=== PATIENT | female | born 1945 | race Caucasian/White ===

== ENCOUNTER 2024-11-20 14:35 | Emergency (ER) | payer MEDICARE, SELFPAY ==
--- NOTE | ~2024-11-20 | CT_ITS ---
EXAMINATION: CT brain wo con DATE: 11/20/2024 15:10 INDICATION: fall on eliquis . TECHNIQUE: Computed tomography (CT) of the head was performed without intravenous contrast. The mA wa s adjusted according to patient size. Iterative reconstruction technique was employed. The dose-lengt h product was 681.00 mGy-cm. COMPARISON: None. FINDINGS: No acute intracranial hemorrhage or extra-axial fluid collection. No hydrocephalus, mass, or herniation. No acute ischemic infarct. Unremarkable dural venous sinus attenuation. No acute osseous abnormality. Left maxillary opacification, with surrounding sclerosis, minimal left mastoid fluid, the remaining a erated spaces are clear. Mild atrophy and chronic white matter change. Atherosclerotic intracranial calcification. IMPRESSION: No acute intracranial process. Reviewed, dictated and finalized at location K.
--- NOTE | ~2024-11-20 | XR_ITS ---
EXAM: XR knee LT min 4V, XR knee RT min 4V DATE: 11/20/2024 16:20 HISTORY: fall . COMPARISON: 10/04/2019, images only. FINDINGS: Osteopenia. No fracture or dislocation. No lytic or blastic lesion. Moderate tricompartmen aileen bilateral knee osteoarthritis. Bilateral quadriceps enthesopathy. Scattered vascular calcificatio ns. Trace bilateral knee joint effusions. No erosion or periosteal change. Soft tissue swelling anter ior to the right patella. IMPRESSION: No acute osseous finding in the right or left knees. Reviewed, dictated and finalized at location K. IMPRESSION: No acute osseous finding in the right or left knees.
--- NOTE | ~2024-11-20 | CT_ITS ---
EXAMINATION: CT cervical spine wo con DATE: 11/20/2024 15:12 INDICATION: fall head injury TECHNIQUE: Computed tomography (CT) of the cervical spine was performed without intravenous contrast. Automated exposure control and iterative reconstruction technique were employed. The dose-length pro duct was 409.95 mGy-cm. COMPARISON: None. FINDINGS: Vertebral Body Alignment: Reversed lordosis centered at C5-6. Grade 1 anterolisthesis at C4-5, presum ably secondary to degenerative changes. Craniocervical and atlantoaxial alignment: Moderate degenerative change. Alignment intact. Osseous structures/fracture: No evidence of a lytic or blastic process in the visualized spine. No e vidence of acute fracture. Left facet fusion at C4-5. Cervical soft tissues: The paraspinal soft tissues planes are maintained. Degenerative changes: Multilevel degenerative disc disease and facet arthropathy. Severe left neural foraminal narrowing at C4-5 secondary to degenerative changes. No severe central canal narrowing. IMPRESSION: No acute fracture or traumatic malalignment in the cervical spine. Reviewed, dictated and finalized at location K.
--- OUTSIDE RECORDS SUMMARY | 2024-11-20 14:37 | XMS_ITS | Data Portability ---
Author Organization [facility] - [facility], [place], [facility] Address [address] [place] [address] Assessment No assessment recorded. Plan of Treatment Reminders Order Date Submit Date Provider Last Modified By Organization Details Last Modified Time Details Appointments None recorded. Lab TSH + free T4, serum 2016 017 amalic Not available 7 09:42:42 T3, free, serum or plasma 2016 017 GARCÍA Not available 7 16:09:44 thyroid peroxidase (tpo) Ab, serum 2016 017 amalic Not available 7 09:42:42 thyroglobul in Ab, serum 2016 017 amalic Not available 7 09:42:42 Referral None recorded. Procedures None recorded. Surgeries None recorded. Imaging None recorded. Medication Orders None recorded. Patient TargetsNo targets recorded. Patient Instructions Encounter Date Encounter Id Patient Instructions Last Modified By Organization Details Last Modified Time 02/09/2017 [id number] Will recheck lipids and A1c shorrtly at [facility] where she lives. [email or web address] Not available 02/09/2017 16:42:36 Reason for Referral None Reported. Results Created Date Observation Date Name Description Value Unit Range Abnormal Flag Note LastModifiedBy Organization Detail LastModifiedTime 02/10/20 17 02/10/2017 thyro id perox idase and thyro globu dominguez antib odies thyroglobuli n antibodies <1 IU/mL < or = 1 normal Not Available [facility] [address], [place], [address], 02/10/2017 16:09:43 02/10/20 17 02/10/2017 thyro id perox idase and thyro globu dominguez antib odies thyroid peroxidase antibodies 1 IU/mL <9 normal Not Available [address], [address], 02/10/2017 16:09:43 02/10/20 17 02/10/2017 T4, free, serum T4, free 1.0 NG/dL 0.8-1. 8 normal Not Available [address], [address], 02/10/2017 16:09:43 02/10/20 17 02/10/2017 TSH, serum or plasm a TSH 0.46 mIU/L 0.40-4 .50 normal Not Available [address], [address], 02/10/2017 16:09:44 02/10/20 17 02/10/2017 T3, free, serum or plasm a T3, free 3.1 pg/mL 2.3-4. 2 normal Not Available [address], [address], 02/10/2017 16:09:44 Result Notes None recorded. Procedures Surgical History Date Name Laterality Status Provider Name and Address Organization Details Recorded Time Hysterectomy completed [facility] 02/09/2017 15:20:33 Imaging Results None recorded. Procedure Notes None recorded. Medical Equipment None Reported. Allergies No known drug allergies Medications Name Sig Start Date Stop Date Status Note LastModified by Organization Details LastModified Time amoxicillin 500 mg capsule 02/09 completed Not Available Not Available Not Available [place] Thyroid 60 mg tablet Take 1 tablet every day by oral route. active Not Available Not Available No t Available metformin 500 mg tablet active Not Available Not Available No t Available Vitals Date Recorded Body height Body mass index (BMI) Body weight Heart rate Systolic And Diastolic Provider Name and Address Organization Details Last Updated DateTime 02/09/2017 166.37 cm 25.1 kg/m2 57434.63 g 80 /min 144/74 mm[Hg] [facility] 02/09/2017 15:16:15 Social History Question Answer Notes LastModified by Organizat ion Details LastModified Time Tobacco Smoking Status Former Smoker Sanam Johnson [facility] 02/09/2017 15:20:24 What Was The Date Of Your Most Recent Tobacco Screening? 02/09/2017 Information n ot available 12/09/2018 Sex: Unknown Functional Status None recorded. Mental Status None recorded. Family History Relationship Description Onset Age of this Age Resolved Age Notes LastModified by Organization Details LastModified Time Father Malignant neoplasm of lung 72 smoker [email or web address] Not available 2016 16:30:38 Father Type 2 diabetes mellitus [email or web address] Not available 2016 16:29:54 Maternal Aunt Type 2 diabetes mellitus [email or web address] Not available 2016 15:20:13 Mother Alcoholism 48 [email or web address] Not availa ble 02/09/2017 16:29:45 Medical History Condition Response Coronary Artery Disease N Gout N Blood Diseases N Kidney Stones N Hyperthyroidism N Depression N COPD N Hypothyroidism Y Developmental or Behavioral Disorders N Anxiety Disorder N Muscle, Joint, or Bone Problems N Vision or Eye Problems N Arthritis N Head Injury/Concussion N Congenital Anomalies N Cancer N Stroke N ADHD N Bladder or Kidney Problems N Hospital Admission other than N High Cholesterol N Liver Disease N Headaches N Fibromyalgia N Kidney Disease N Ear or Hearing Problems N Thyroid Problems Y Skin Problems N Anemia N Constipation N Mental Illness N Diabetes N Bedwetting N Seizures/Epilepsy N Heart Problems/Murmur N Tuberculosis N Diverticulitis N Asthma N Allergies N Reflux/GERD N Heart Disease N Pulmonary Embolism N Hypertension N Chicken Pox Y Autism Spectrum Disorder (ASD) N Osteoporosis N Gynecological HistoryNo gynecological history recorded. Obstetrics History GPAL:G 0 P 0 0 0 0 Past Encounters Encounter ID Performer Location Encounter Start Date Encounter Closed Date Diagnosis/Indication Diagnosis SNOMED-CT Code Diagnosis ICD10 Code Diagnosis Note [id number] Balwinder Castellon MD Main Office [address] [place] [address] 02/09/2017 15:14:02 02/09/2017 16:46:43 Hypothyroidism 23795763 E03.9 Menopause present 544873 006 N95.1 Hyperglycemia 08874798 R 73.9 Health Concerns Section Related Observation LastModified by Organization Detai ls LastModified Time None Recorded Concern Status LastModified by Organization Details LastModified Time None Recorded Advance Directives Directive None Recorded Payers Insurance Date Sequence Insurance Name Policy Number Policy Jorge Covered Member ID Jorge Member ID Guarantor Name 02/09/2017 1 [place] Terra Rose [id number] Terra Rose 02/09/2017 2 [employer] (MEDICARE SUPPLEMENT) Terra Rose [id number] Terra Rose Notes Date Note Type Note Provider Name and Address Organization Details Recorded Time 7 text/htm l Get establishedHysterectomy 1986 - was placed on Estrace [address] Beard. Later switched to biodentical by Dr. Krishna Moy until his fdc in 1998 and was discontinued at that time. R hip replacement 03/2014. had accelerated unilateral cartilage loss following a hip injury about 3 years earlier. [place] thyroid 60 mg - was started by Krishna Moy based on temperatures largely - has helped energy and sleep.Tried own iodine supplementation Weight 175 max 2 years ago; 153 today with calorie reduction and better food choices. A1c 6.2 08/2016 - TG 184 since 2001 - lives alone in [facility]. Very active Lifestyle - likes it - travels - I'm not lonely - Son daughter live in area - takes 8k per day. Hair always thin wears wig now.Hearing good.High energy feels well PMD is Nadeem Powell in [place] Balwinder Castellon MD [address] [place], [address], [place] - [facility] 02/09/2017 16:43:34 OBGyn Episode No OBEpisode recorded.
[2024-11-20 14:40] VITALS: BP 138/78; PULSE 55; RESP 16; TEMP 36.6; O2SAT 100
--- OUTSIDE RECORDS SUMMARY | 2024-11-20 15:41 | XMS_ITS | Encounter Summary ---
Author Organization [facility] Address [facility] [place] [address] Care Team Providers Care Office Clerk Assistant Name Role Phone Kristy Thomas MD Primary Care Provider [phone] Kristy Thomas MD Unavailable [phone] Encounter Details Date Type Department Care Team (Late st Contact Info) Description 08/29/2022 [employer] Message Enc [facility] Medical Group Family & Internal Medicine [facility] [id number] [place] [address] [facility] Blood pressure Social History Tobacco Use Types Packs/Day Years Used Date Smoking Tobacco: Former Cigarettes 0.5 12 1 963 - 1975 Smokeless Tobacco: Never Alcohol Use Standard Drinks/Week Comments Yes 0 (1 standard drink = 0.6 oz pur e alcohol) 2=3 TIMES A WK AUDIT-C Answer Date Recorded Frequency of Alcohol Consumption 4 or more times a week 10/11/2019 Average Number of Drinks Not on file 020 Frequency of Binge Drinking Not on file 09/16 PHQ-2 Answer Date Recorded Patient Health Questionnaire-2 Score 0 08/28/2022 Education Answer Date Recorded What is the highest level of school you have completed or the highest degree you have received? 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 No / Unsure 08/28/2022 4:17 PM CDT documented as of this encounter Plan of Treatment Upcoming Encounters Date Type Department Care Team (Late st Contact Info) Description 11/29/2024 9:00 AM CDT Appointment [facility] [address] [place] [address] Idris Lozano MD Three [facility]. [address] [place] [address] 12/08/2024 9:15 AM CDT [facility] [address] [place] [phone] Odalys Woodall FNP 3 [facility] [address] [place], [place] [address] 01/25/2025 10:40 AM CDT Office Visit [facility] Medical Group Family & Internal Medicine - [place] [address] [place] [address] [place] [address] [facility] [address]. [address] [place] [phone] documented as of this encounter Visit Diagnoses Not on filedocumented in this encounter Additional Health Concerns Infection Onset Date Last Indicated Resolved Time COVID-19 Rule Out 10/24/2022 10/24/2022 10/24/2022 10:11 AM CDT documented as of this encounter Care Teams Office Clerk Assistant Relationship Specialty [place] [address] [address] [place] [phone] PCP - General FAMILY PRACTICE 06/26/22 [place] [address] [place] [address] FAMILY PRACTICE 02/11/23 02/11/23 documented as of this encounter
--- OUTSIDE RECORDS SUMMARY | 2024-11-20 15:41 | XMS_ITS | Encounter Summary ---
Author Organization [facility] Address [facility] [place] [address] Care Team Providers Care Organizational Consultant Name Role Phone Nadeem Powell MD Primary Care Provider U Kristy Eric MD Primary Care Provider [phone] Kristy Thomas MD Unavailable [phone] Encounter Details Date Type Department Care Team (Late st Contact Info) Description 09/05/2021 [employer] Message Enc [facility] Medical [facility] Family & Internal Medicine [facility] [id number] [place] [address] L[facility] Provider results Social History Tobacco Use Types Packs/Day Years [...] on file 09/16 PHQ-2 Answer Date Recorded PHQ-2 Score 0 09/28/2018 Education Answer Date Recorded What is the highest level of school you have completed or the highest degree you have received? 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 No / Unsure 09/03/2021 10:22 AM CDT documented as of this encounter Plan of Treatment Upcoming Encounters Date Type Department Care Team (Late st Contact Info) Description 11/29/2024 9:00 AM CDT Appointment [facility] [address] [place] [address] Idris Lozano MD Three [facility]. [address] [place], [place] [phone] 12/08/2024 9:15 AM CDT Office Visit [facility] [address] [place] [phone] Odalys Woodall FNP 3 [facility] [address] [place] [address] 01/25/2025 10:40 AM CDT Office Visit [facility] Family & Internal Medicine - [place] [address] [place] [address] [place] [address] [facility]. [address] [place] [phone] documented as of this encounter Visit Diagnoses Not on filedocumented in this encounter Additional Health Concerns Infection Onset Date Last Indicated Resolved Time COVID-19 Rule Out 10/24/2022 10/24/2022 10/24/2022 10:11 AM CDT documented as of this encounter Care Teams Organizational Consultant Relationship Specialty Start Date End Date Nadeem Powell MD PCP - General INTERNAL MEDICINE 02/24/18 06/25/22 [place] [address] [facility]. [address] [place], [place] [phone] PCP - General FAMILY PRACTICE 06/26/22 [place] [address] [place] [address] FAMILY PRACTICE 02/11/23 02/11/23 documented as of this encounter
--- OUTSIDE RECORDS SUMMARY | 2024-11-20 15:41 | XMS_ITS | Encounter Summary ---
Author Organization [facility] Address [facility] [place] [address] Care Team Providers Care Farm Rancher Name Role Phone Kristy Thomas MD Primary Care Provider [phone] Encounter Details Date Type Department Care Team (Latest Contact Info) Description 11/20/2024 Travel Social History Tobacco Use Types Packs/Day Years Used Date Smoking Tobacco: Former Cigarettes 0.5 12 1 963 - 1974 Passive Smoke Exposure: Past Smokeless Tobacco: Never Alcohol Use Standard Drinks/Week Comments Yes 0 (1 standard drink = 0.6 oz pur e alcohol) 2-3 TIMES A WK AUDIT-C Answer Date Recorded Frequency of Alcohol Consumption 4 or more times a week 10/11/2019 Average Number of Drinks Not on file 020 Frequency of Binge Drinking Not on file 09/16 PHQ-2 Answer Date Recorded Patient Health Questionnaire-2 Score 0 07/20/2024 Education Answer Date Recorded What is the highest level of school you have completed or the highest degree you have received? 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 [address] [place] [address] 12/08/2024 9:15 AM CDT [facility] [address] [place] [address] Odalys Woodall FNP 3 [facility] [address] [place] [address] 01/25/2025 10:40 AM CDT Office Visit [facility] Medical Group Family & Internal Medicine - [place] [address] [place] [address] [place] [address] [facility] [address]. [address] [place] [address] documented as of this encounter Visit Diagnoses Not on filedocumented in this encounter Care Teams Farm Rancher Relationship Specialty [place] [address] [facility]. [address] [place], [place] [phone] PCP - General FAMILY PRACTICE 06/26/22 documented as of this encounter
--- OUTSIDE RECORDS SUMMARY | 2024-11-20 15:41 | XMS_ITS | Clinical Summary ---
Author Organization [facility] Address Formerly [facility] [place] [address] Care Team Providers Care Speech Language Assistant Name Role Phone Kristy Thomas MD Primary Care Provider [phone] Allergies No known active allergies Medications VITAMIN E OR Take 400 Units by mouth daily. Active TURMERIC CURCUMIN OR Take 1 tablet by mouth daily. Active ASHWAGANDHA OR Take 1 tablet by mouth. Active SELENIUM OR Take 200 mcg by mouth daily. Active CINNAMON OR Take 1,000 mg by mouth 2 (two) times a day. Active Ascorbic Acid (VITAMIN C OR) Take 8,000 mcg by mouth daily. Active VITAMIN A OR Take 10,000 Units by mouth daily. Active Red Yeast Rice Extract (RED YEAST RICE OR) Take 1 tablet by mouth daily. Active MULTIPLE VITAMIN OR Take 1 tablet by mouth 2 (two) times a day. Active MILK THISTLE OR Take 375 mg by mouth as needed. Active Cholecalciferol (VITAMIN D3 OR) Take 800 mcg by mouth daily. Active MAGNESIUM OR Take 800 mg by mouth daily. Active Coenzyme Q10 (CO Q10 OR) Take 200 mcg by mouth daily. Active Barberry-Oreg Grape-Goldenseal (BERBERINE COMPLEX OR) Take 1 tablet by mouth 2 (two) times a day. Active RESVERATROL OR Take 1 tablet by mouth daily. Active QUERCETIN OR Take 1 tablet by mouth daily. Active SODIUM FLUORIDE 5000 PPM 1.1 % Gel see administration instructions. 06/27/19 22 Active SODIUM FLUORIDE 5000 PPM 1.1 % Paste 07/13/19 24 Active Blood Glucose Monitoring Suppl (EcoSurge VERIO REFLECT) w/Device KitIndications:Ty pe 2 diabetes mellitus without complication, without long-term current use of insulin ([facility] HHS/HCC) 1 kit by Does not apply route see administration instructions. 1 kit 09/14/19 24 Active Lancets MiscIndications:T ype 2 diabetes mellitus without complication, without long-term current use of insulin ([facility] HHS/HCC) 1 each by Does not apply route daily. Use 1 daily as needed 100 each 3 01/21/20 24 Active Lancets MiscIndications:T ype 2 diabetes mellitus without complication, without long-term current use of insulin ([facility] HHS/HCC) Use 1 daily as needed. 100 each 1 01/25/20 24 Active Glucose Blood (TRUE METRIX BLOOD GLUCOSE TEST) test stripIndications: Type 2 diabetes mellitus without complication, without long-term current use of insulin ([facility] HHS/HCC) USE 1 STRIP BY OTHER ROUTE DAILY. USE INSTRUCTED 100 strip 3 03/10/20 24 Active calcium carbonate 1250 (500 Ca) MG chewable tablet Chew 1 tablet (1,250 mg total) by mouth daily. Active Lancets (ONETOUCH DELICA PLUS [id number]) MiscIndications:T ype 2 diabetes mellitus without complication, without long-term current use of insulin ([facility] HHS/HCC) 1 EACH BY DOES NOT APPLY ROUTE DAILY. USE ONCE DAILY NEEDED. 100 each 07/11/19 25 Active Prasterone, DHEA, (DHEA 50 OR) Take 50 mLs by mouth daily. Active metFORMIN (GLUCOPHAGE) 500 MG tabletIndications :Type 2 diabetes mellitus without complication, without long-term current use of insulin ([facility] HHS/HCC) Take 1 tablet (500 mg total) by mouth 2 (two) times daily. 180 tablet 3 07/21/19 25 Active metoprolol succinate ER (TOPROL-XL) 25 MG 24 hr tabletIndications :Paroxysmal atrial fibrillation ([facility] HHS/HCC) Take 0.5 tablets (12.5 mg total) by mouth daily. 45 tablet 3 07/21/19 25 Active traZODone (DESYREL) 50 MG tabletIndications :Other insomnia Take 1 tablet (50 mg total) by mouth nightly at bedtime. 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 90 tablet 3 07/21/19 25 Active atorvastatin (LIPITOR) 20 MG tabletIndications :Mixed hyperlipidemia Take 1 tablet (20 mg total) by mouth nightly at bedtime. Taking Mon and Wed 60 tablet 5 07/21/19 25 Active apixaban (ELIQUIS) 5 MG tabletIndications :Paroxysmal atrial fibrillation ([facility]) Take 1 tablet (5 mg total) by mouth 2 (two) times daily. 180 tablet 3 07/21/19 25 Active irbesartan (AVAPRO) 150 MG tabletIndications :Primary hypertension Take 0.5 tablets (75 mg total) by mouth daily. 45 tablet 3 07/29/19 25 Active ferrous sulfate, 65 mg elemental, 325 (65 FE) MG tabletIndications :Iron deficiency anemia, unspecified iron deficiency anemia type TAKE 1 TABLET BY MOUTH EVERY DAY WITH BREAKFAST 90 tablet 10/13/19 25 Active sulfamethoxazole- trimethoprim (BACTRIM DS) 800-160 MG tabletIndications :Acute cystitis with hematuria Take 1 tablet by mouth 2 (two) times daily for 10 days. 20 tablet 10/28/19 25 025 Active Problems Problem Noted Date Diagnosed Date Type 2 diabetes mellitus wit hout complication, without long-term current use of insulin ([facility]) 08/28/2022 Other thrombophilia ([facility]) 03/25/2022 Menopause 03/25/2022 Iron deficiency anemia, unsp ecified iron deficiency anemia type 03/25/2022 Primary hypertension 02/13/2020 Paroxysmal atrial fibrillation ([facility]) 02/13/2020 Mixed hyperlipidemia 02/13/2020 Aortic valve stenosis, etiol ogy of cardiac valve disease unspecified 06/22/2019 Bruit of right carotid artery 06/22/2019 Adult BMI 27.0-27.9 kg/sq m 09/28/2018 Murmur 03/07/2014 Metabolic disorder 05/02/2013 Hypothyroidism 03/21/2013 Palpitations Resolved Problems Problem Noted Date Diagnosed Date Resolved Date Health care maintenance 03/25/202203/18 Kidney infection 02/13/2020 09/24/2021 Encounters Date Type Department Care Team Description 11/20/2024 2:06 PM CDT - 11/20/2024 2:10 PM CDT Emergency [facility] Emergency Room [address] [place] [address] Discharge Disposition: Left Against Medical Advice 11/20/2024 Travel 10/28/2024 Results Follow-Up [facility] Internal [address] [address] Almita Leung PA URINALYSIS AUTO DIP, URINE BACTERIA CULTURE 10/27/2024 4:00 PM CDT Office Visit [facility] Internal [address] [address] Almita Leung PA UTI (Burning with urination and pain-pressure and frequency) 10/27/2024 Travel 09/01/2024 1:40 PM CDT Office Visit [facility] Family & Internal [address] [address] Almita Leung, PA Foot Pain (Has sore to left 2nd toe-2 weeks) 09/01/2024 Travel from Last 3 Months Immunizations Immunization Administration Dates Next Due Fluzone Adult - >Age 3 (Pref illed Syringe) 02/13/2020(Deferred: Patient Refused) MODERNA COVID-19 (12+) MRNA, LNP-S, PF, 100 MCG/ 0.5 ML DOSE 03/13/2021,08/24/2020,07/27/2020 Pneumococcal (Pneumovax 23) 03/18/2022(Deferred: Patient Refused) Tdap (Generic) 02/17/2024 Family History Medical History Relation Comments Alcohol Abuse Father Arthritis Father Asthma Father Cancer Father Early Hearing Loss Father Lung Cancer Father Alcohol Abuse Mother Diabetes Mother Early Mother alcoholic Mother Arthritis Paternal Grandfather Relation Status Comments Father (Age 72) Mother (Age 48) Paternal Grandfather Alive Social History Tobacco Use Types Packs/Day Years Used Date Smoking Tobacco: Former Cigarettes 0.5 12 1 963 - 1974 Passive Smoke Exposure: Past Smokeless Tobacco: Never Tobacco Cessation:Counseling Given: No Alcohol Use Standard Drinks/Week Comments Yes 0 [...] Sex Assigned at Female 06/15/2024 10:12 AM COUNTRY SINGER Legal Sex Female 11:04 PM CDT Gender Identity Female 09/23/2021 8:49 AM CDT Sexual Orientation Not on file Last Filed Vital Signs Vital Sign Reading Time Taken Comments Blood Pressure 138/73 10/27/2024 3:42 PM CDT Pulse 95 10/27/2024 3:42 PM CDT Temperature 36.3 C (97.3 F) 10/27/2024 3:42 PM CDT Respiratory Rate 20 10/27/2024 3:42 PM CDT Oxygen Saturation 97% 10/27/2024 3:42 PM CDT Inhaled Oxygen Concentration - - Weight 80.3 kg (177 lb) 10/27/2024 3:42 PM CDT Height 165.1 cm (5' 5) 10/27/2024 3:42 PM CDT Body Mass Index 29.45 10/27/2024 3:42 PM CDT Plan of Treatment Upcoming Encounters Date Type Department Care Team (Late st Contact Info) Description 11/29/2024 9:00 AM CDT Appointment [facility] [address] [place] [address] Idris Lozano MD [facility]. [address] [address] 12/08/2024 9:15 AM CDT [facility] [address] [place] [id number] Odalys Woodall FNP [address] [facility] [address] [place] [address] 01/25/2025 10:40 AM CDT Office Visit [facility] Internal Medicine - [place] [address] [place] [address] [place] [address] [facility] [place] [address] Health Maintenance Due Date Last Done Comments Hepatitis C 1963 Annual Medicare Wellness Visit 2011 RSV Immunization or 60+ Years (1 - 1-dose 75+ series) 2021 COVID-19 Vaccine ( season) 2024 03/13/2021, 08/24/2020, 07/27/2020 Hemoglobin A1C 01/10/2025 07/13/2024, 090 09/2023, 10/19/2023, Additional history exists Kidney Health Evaluation 07/13/2025 07/13/2024 Lipid Panel 07/13/2025 07/13/2024, 0 09/2023, 12/01/2022, Additional history exists Diabetes: Retinopathy Eye Exam 03/25/2026 03/25/2024 Pneumococcal Vaccine: 50+ Years (1 of 2 - PCV) 10/26/2026 Postponed from 1965 (Patient Refused) Zoster Vaccines (1 of 2) 11/01/2031 Pos tponed from 1996 (Patient Refused) DTaP, Tdap and Td Vaccines (2 - Td or Tdap) 02/16/2034 02/17/2024 Colorectal Cancer Screening Colonoscopy (10 Years) Discontinued 08/20/2000, 08/20/2000, 08/20/2000, Additional history exists Dexa Scan (General) Completed 04/09/2022 Colorectal Cancer Screening FIT-DNA (3 Years) Discontinued 04/15/2022, 04/15/2022 PHQ-2 (Physician Knik) Completed 07/20/2024 Meningococcal B Vaccine Aged Out No l onger eligible based on patient's age to complete this topic Meningococcal Vaccine Aged Out No bishop berto eligible based on patient's age to complete this topic RSV Immunizations Under 20 Months Aged Out No longer eligible based on patient's age to complete this topic Procedures Procedure Name Priority Date/Time Associated Diagnosis Comments URINE BACTERIA CULTURE Routine 10/27/2024 3:56 PM CDT Suspected UTI URINALYSIS AUTO DIP Routine 10/27/2024 Suspected UTI LIPID PANEL Routine 07/13/2024 9:42 AM COUNTRY SINGER Type 2 diabetes mellitus without complication, without long-term current use of insulin ([facility]) Mixed hyperlipidemia Primary hypertension Vitamin D deficiency Law's disease HEMOGLOBIN, GLYCOSYLATED Routine 07/13/2024 9:42 AM COUNTRY SINGER Type 2 diabetes mellitus without complication, without long-term current use of insulin ([facility]) Mixed hyperlipidemia Primary hypertension Vitamin D deficiency Law's disease DIABETIC RETINOPATHY EXAM (NEGATIVE)(SCAN ORDER) Routine 03/25/2024 COLOGUARD (EXACT SCIENCE) Routine 04/15/2022 7:30 AM COUNTRY SINGER Colon cancer screening BONE DENSITY/DEXA Routine 04/09/2022 10: 19 AM COUNTRY SINGER Menopause COLONOSCOPY GENERIC (SCAN ORDER) 08/20/2000 from Last 3 Months or Most Recently Relevant to Health Maintenance Results * (ABNORMAL) URINE BACTERIA CULTURE (10/27/2024 3:56 PM CDT) CULTURE RESULT (A) [id number] [place] Comment: CULTURE, URINE, ROUTINE Micro Number: [id number] Test Status: Final Specimen Source: Urine Specimen Quality: Adequate Result: Greater than 100,000 CFU/mL of Escherichia coli E.coli INT ESTHER AMOX/CLAVULANATE S 4 AMP/SULBACTAM S <=2 CEFAZOLIN R >=64 1 CEFEPIME S <=0.12 CEFTAZIDIME S <=1 CEFTRIAXONE S <=0.25 CIPROFLOXACIN S <=0.06 GENTAMICIN S <=1 IMIPENEM S 1 LEVOFLOXACIN S <=0.12 MEROPENEM S <=0.25 NITROFURANTOIN S <=16 PIP/TAZOBACTAM S <=4 TRIMETHOPRIM/SULFA S <=20 S = Susceptible I = Intermediate R = Resistant NS = Not susceptible SDD = Susceptible Dose Dependent * = Not Tested NR = Not Reported NN = See Therapy Comments THERAPY COMMENTS Note 1: For uncomplicated UTI caused by E. coli, K. pneumoniae or P. mirabilis: Cefazolin is susceptible if ESTHER <32 mcg/mL and predicts susceptible to the oral agents cefaclor, cefdinir, cefpodoxime, cefprozil, cefuroxime, cephalexin and loracarbef. URINE SPECIMEN OBTAINED BY CLEAN CATCH PROCEDURE / Unknown 10/27/2024 3:56 PM CDT 10/28/2024 12:13 AM CDT Narrative Resulting Agency Comment Performing Organization Information: Site ID: SL Name: [email or web address] Address: [facility] [place] [address] Director: Dinorah Aguilera Almita SANDY MICROBIOLOGY - GENERAL ORDER NIKIA Final Result [facility]STOP[facility] ORDERS [address] [address], * (ABNORMAL) URINALYSIS AUTO DIP (10/27/2024) COLOR (U) DAMARIS(A) YELLOW [id number], [place] [employer] CLEAR CLEAR [id number], [facility] GLU[facility] (U) 100 mg/dl(A) NEGATIVE MG/DL [id number], [facility] BILIRUBIN (U) NEGATIVE NEGATIVE MG-[address], [facility] K[facility] MG/DL (U) NEGATIVE NEGATIVE MG/DL [id number], [place] SPECIFIC GRAVITY (U) 1.010 1.001 - 1.035 MG-[id number], [facility] BLOOD (U) TRACE (Non Hemolyzed, Intact)(A) NEGATIVE MG-[id number], [place] U PH 6.0 5.0 - 9.0 MG-[address], [place] PROTEIN (U) NEGATIVE NEGATIVE mg/dL MG-[id number], [place] UROBILINOGEN 0.2 0.2 - 1.0 EU/dL = mg/dL MG-[id number] [place] NITRITES POSITIVE(A) NEGATIVE MG/DL MG-[id number], [place] LEUKOCYTES (U) 3+ (LARGE)(A) NEGATIVE MG-[id number], [place] URINE SPECIMEN OBTAINED BY CLEAN CATCH PROCEDURE / Unknown 10/27/2024 Almita SANDY URINE ORDERABLES Final Resul t Performing Organization Address [facility] de Phone Number [facility] [place] [facility] [address] [place] [address], [place] [phone] * (ABNORMAL) HEMOGLOBIN, GLYCOSYLATED (07/13/2024 9:42 AM COUNTRY SINGER) HGB A1C 6.4(H) <5.7 % 07/13/2024 10:07 AM COUNTRY SINGER [facility] Comment: INCREASED RISK OF DIABETES <5.7% NON-DIABETES 5.7-6.4% INCREASED RISK FOR FUTURE DIABETES > OR = 6.5 CONSISTENT WITH DIABETES STANDARDS OF MEDICAL CARE IN DIABETES-2010 DIABETES CARE, 33(SUPP 1): S1-S61,2010 ESTIMATED AVG GLUCOSE 137 mg/dL 07/13/2024 10:07 AM COUNTRY SINGER [facility] 07/13/2024 9:42 AM COUNTRY SINGER Kristy Thomas MD LABORATORY Final Result Performing Organization Address [facility] Co de Phone Number [facility] [address] [place] [address], [place] [phone] * (ABNORMAL) LIPID PANEL (07/13/2024 9:42 AM COUNTRY SINGER) CHOLESTEROL 148 <200.0 MG/DL 07/13/2024 10:18 AM [facility] TRIGLYCERIDES 165(H) <150 MG/DL 07/13/2024 10:18 AM [facility] HDL 48 >40.0 MG/DL 07/13/2024 10:18 AM [facility] LDL (CALCULATED) 67 <100 MG/DL 07/13/2024 10:18 AM [facility] NON HDL CHOLESTEROL 100 <130 MG/DL 07/13/2024 10:18 AM [facility] CHOL/HDL RATIO 3.1 0.0 - 4.5 07/13/2024 10:18 AM [facility] VLDL CALCULATION 33 5 - 55 MG/DL 07/13/2024 10:18 AM [facility] LIPID INTERPRETATION 07/13/2024 10:18 AM [facility] Comment: NIH CONCENSUS REPORT RECOMMENDATIONS: ADULT CHILD LOW RISK: CHOLESTEROL <200 <170 TRIGLYCERIDE <150 --- HDL >=60 --- LDL <100 <110 BORDERLINE: CHOLESTEROL 200-239 170-199 TRIGLYCERIDE 150-199 --- HDL 40-59 --- LDL 100-159 110-129 HIGH RISK: CHOLESTEROL >=240 >=200 TRIGLYCERIDE >=200 --- HDL <40 --- LDL >=160 >=130 07/13/2024 9:42 AM COUNTRY SINGER Kristy Thomas MD LABORATORY Final Result [facility] [address] [place] [address], * DIABETIC RETINOPATHY EXAM (NEGATIVE) (03/25/2024) [facility] Scanned SCANNING Final Resu lt [facility] ON[facility] * COLOGUARD (EXACT SCIENCE) (04/15/2022 7:30 AM COUNTRY SINGER) COLOGUARD RESULT Negative Negative [facility] (CLIA #:[id number]) Comment: NEGATIVE TEST RESULT. A negative Cologuard result indicates a low likelihood that a colorectal cancer (CRC) or advanced adenoma (adenomatous polyps with more advanced pre-malignant features) is present. The chance that a person with a negative Cologuard test has a colorectal cancer is less than 1 in 1500 (negative predictive value >99.9%) or has an advanced adenoma is less than 5.3% (negative predictive value 94.7%). These data are based on a prospective cross-sectional study of 10,000 individuals at average risk for colorectal cancer who were screened with both Cologuard and colonoscopy. (Miguel Smith et al, N Engl J Med 2014;370(14):3990-1737) The normal value (reference range) for this assay is negative. COLOGUARD RE-SCREENING RECOMMENDATION: Periodic colorectal cancer screening is an important part of preventive healthcare for asymptomatic individuals at average risk for colorectal cancer. Following a negative Cologuard result, the [place] [employer] and U.S. Multi-Society Task Force screening guidelines recommend a Cologuard re-screening interval of 3 years. References: [place] [employer] Guideline for Colorectal Cancer Screening: https://www.cancer.org/cancer/nrvyu-kisuqf-wvdtio/crottfnvm-ocnqwdzkb-qvhoxul/ac s-rec ommendations.html.; Franklin ROOT, Delio CR, Liya HandleyK, Colorectal Cancer Screening: Recommendations for Physicians and Patients from the U.S. Multi-Society Task Force on Colorectal Cancer Screening , Am J Gastroenterology 2017; 112:9799-4045. TEST DESCRIPTION: Composite algorithmic analysis of stool DNA-biomarkers with hemoglobin immunoassay. Quantitative values of individual biomarkers are not reportable and are not associated with individual biomarker result reference ranges. Cologuard is intended for colorectal cancer screening of adults of either sex, 45 years or older, who are at average-risk for colorectal cancer (CRC). Cologuard has been approved for use by the U.S. FDA. The performance of Cologuard was established in a cross sectional study of average-risk adults aged 50-84. Cologuard performance in patients ages 45 to 49 years was estimated by sub-group analysis of near-age groups. Colonoscopies performed for a positive result may find as the most clinically significant lesion: colorectal cancer [4.0%], advanced adenoma (including sessile serrated polyps greater than or equal to 1cm diameter) [20%] or non- advanced adenoma [31%]; or no colorectal neoplasia [45%]. These estimates are derived from a prospective cross-sectional screening study of 10,000 individuals at average risk for colorectal cancer who were screened with both Cologuard and colonoscopy. (Mgiuel Chatterjee al, N Engl J Med 2014;370(14):0740-0423.) Cologuard may produce a false negative or false positive result (no colorectal cancer or precancerous polyp present at colonoscopy follow up). A negative Cologuard test result does not guarantee the absence of CRC or advanced adenoma (pre-cancer). The current Cologuard screening interval is every 3 years. ([place] [employer] and U.S. Multi-Society Task Force). Cologuard performance data in a 10,000 patient pivotal study using colonoscopy as the reference method can be accessed at the following location: www.Splyst/results. Additional description of the Cologuard test process, warnings and precautions can be found at www.cologuard.com. STOOL STOOL SPECIMEN / Unknown 04/15/2022 7:30 AM COUNTRY SINGER 04/16/2022 10:34 AM COUNTRY SINGER us Chapo Nielsen MD BODY FLUIDS AND STOOLS O RDERABLES Final Result [facility] ([facility]) [address] [place] [address], [facility] (CLIA #:[id number]) [address] [place] [address] * BONE DENSITY/DEXA (04/09/2022 10:19 AM COUNTRY SINGER) Anatomical Region Laterality Modality Bone Bone Density 04/09/2022 10:2 2 AM COUNTRY SINGER Narrative 04/09/2022 10:23 AM COUNTRY SINGER IMAGING STUDIES: BONE DENSITY/DEXA DATE: 04/09/2022 10:00 AM CLINICAL HISTORY: 76-year-old female with menopause at age 41 due to hysterectomy. On calcium therapy.. FINDINGS: LUMBAR SPINE L2-L4: BMD: 1.038 g/sq cm T-SCORE: -0.4 WHO CLASSIFICATION: Normal young adult range FRACTURE RISK: Very low LEFT FEMORAL NECK: BMD: 0.863 T-SCORE: 0.1 WHO CLASSIFICATION: Normal young adult range FRACTURE RISK: Very low Recommendation. Continuation of calcium replacement therapy with repeat imaging in 2 years Ordered By: CHAPO NIELSEN Interpreted By: Stef Davila, 04/09/2022 10:22 AM Procedure Note Braxton Davila MD - 04/09/2022 IMAGING STUDIES: BONE DENSITY/DEXA DATE: 04/09/2022 10:00 AM CLINICAL HISTORY: 76-year-old female with menopause at age 41due to hysterectomy. On calcium therapy.. FINDINGS: LUMBAR SPINE L2-L4: BMD: 1.038 g/sq cm T-SCORE: -0.4 WHO CLASSIFICATION: Normal young adult range FRACTURE RISK: Very low LEFT FEMORAL NECK: BMD: 0.863 T-SCORE: 0.1 WHO CLASSIFICATION: Normal young adult range FRACTURE RISK: Very low Recommendation. Continuation of calcium replacement therapy with repeatimaging in 2 years Ordered By: CHAPO NIELSEN Interpreted By: Stef Davila, 04/09/2022 10:22 AM us Chapo Nielsen MD DEXA Final Re sult * COLONOSCOPY GENERIC (08/20/2000) 08/20/2000 Narrative 08/20/2000 Ordered by an unspecified provider. us Documents Scanned SCANNING Final Result from Last 3 Months or Most Recently Relevant to Health Maintenance [facility] [facility] [place] [id number] Care Teams Speech Language Assistant Relationship Specialty [place] [address] [place], [place] [id number] PCP - General FAMILY PRACTICE 06/26/22
--- OUTSIDE RECORDS SUMMARY | 2024-11-20 15:41 | XMS_ITS | Encounter Summary ---
Author Organization [facility] Address [facility] [place] [address] Care Team Providers Care Workers' Compensation Magistrate Name Role Phone Kristy Thomas MD Primary Care Provider [phone] Kristy Thomas MD Unavailable [phone] Encounter Details Date Type Department Care Team (Late st Contact Info) Description 09/09/2022 [employer] Message [facility] Family & Internal Medicine [facility] [id number] [place] [address] [facility] Provider injections Social History Tobacco Use Types Packs/Day Years [...] Sex Assigned at Female 06/15/2024 10:12 AM TELEGRAPH MESSENGER Legal Sex Female 11:04 PM CDT Gender [...] Info) Description 11/29/2024 9:00 AM CDT Appointment [facility] [address] [place] [address] Idris Lozano MD Three [facility]. [address] [place] [address] 12/08/2024 9:15 AM CDT Office [facility] [address] [place] [address] Odalys Woodall FNP 3 [facility] [address] [place], [place] [address] 01/25/2025 10:40 AM CDT Office Visit [facility] Family & Internal Medicine - [place] [address] [place] [address] [place] [address] [facility] [address]. [address] [place] [phone] documented as of this encounter Visit Diagnoses Not on filedocumented in this encounter Additional Health Concerns Infection Onset Date Last Indicated Resolved Time COVID-19 Rule Out 10/24/2022 10/24/2022 10/24/2022 10:11 AM CDT documented as of this encounter Care Teams Workers' Compensation Magistrate Relationship Specialty [place] [address] [place], [place] [phone] PCP - General FAMILY PRACTICE 06/26/22 [place] [address] [place] [address] FAMILY PRACTICE 02/11/23 02/11/23 documented as of this encounter
--- OUTSIDE RECORDS SUMMARY | 2024-11-20 15:41 | XMS_ITS | Encounter Summary ---
Author Organization [facility] Address [facility] [place] [address] Care Team Providers Care Ferry Captain Name Role Phone Nadeem Powell MD Primary Care Provider U abadjennifer Kristy Thomas MD Primary Care Provider [phone] Kristy Thomas MD Unavailable [phone] Encounter Details Date Type Department Care Team (Late st Contact Info) Description 11/23/2017 Abstract [facility] CONVERSION [address] [place] [address] , Generic MD Vnaessa Social History Tobacco Use Types Packs/Day Years Used Date Smoking Tobacco: Never Assessed Comments Unknown Sex and Gender Information Value Date Recorded Sex Assigned at Female 06/15/2024 10:12 AM CONSULTING SYSTEMS ENGINEER Legal Sex Female 11:04 PM CDT Gender Identity Female 09/23/2021 8:49 AM CDT Sexual Orientation Not on file documented as of this encounter Plan of Treatment Upcoming Encounters Date Type Department Care Team (Late Contact Info) Description 11/29/2024 9:00 AM CDT Appointment [facility] [address] [place], [place] [phone] Idris Lozano MD [address] [address] 12/08/2024 9:15 AM CDT [facility] [address] [place] [address] Odalys Woodall, CHEMICAL DEPENDENCY THERAPIST 3 [facility] [address] [place] [address] 01/25/2025 10:40 AM CDT Office Visit [facility] Group Family & Internal Medicine - [place] [address] [place] [phone] [place] [address] [facility] [address]. [address] [place] [address] documented as of this encounter Visit Diagnoses Not on filedocumented in this encounter Additional Health Concerns Infection Onset Date Last Indicated Resolved Time COVID-19 Rule Out 10/24/2022 10/24/2022 10/24/2022 10:11 AM CDT documented as of this encounter Care Teams Ferry Captain Relationship Specialty Start Date End Date Nadeem Powell MD PCP - General INTERNAL MEDICINE 02/24/18 06/25/22 [place] [address] [address] [place] [address] PCP - General FAMILY PRACTICE 06/26/22 [place] [address] [place] [address] FAMILY PRACTICE 02/11/23 02/11/23 documented as of this encounter
--- OUTSIDE RECORDS SUMMARY | 2024-11-20 15:41 | XMS_ITS | Encounter Summary ---
Author Organization [facility] Address [facility] [place] [address] Care Team Providers Care Cyber Security Instructor Name Role Phone Kristy Thomas MD Primary Care Provider [phone] Encounter Details Date Type Department Care Team (Late st Contact Info) Description 10/28/2024 Results Follow-Up [facility] Family & Internal Medicine [facility] [address] [place] [address] [place]mit[place], [place] [address] [place] [address] URINALYSIS AUTO DIP, URINE BACTERIA CULTURE Social History Tobacco Use Types Packs/Day Years Used Date Smoking Tobacco: Former Cigarettes 0.5 12 1 963 - 1975 Passive Smoke Exposure: Past Smokeless Tobacco: Never [...] Sex Assigned at Female 06/15/2024 10:12 AM BIOINFORMATICS COMPUTER SCIENTIST Legal Sex Female 11:04 PM CDT Gender Identity Female 09/23/2021 8:49 AM CDT Sexual Orientation Not on file documented as of this encounter Plan of Treatment Upcoming Encounters Date Type Department Care Team (Late st Contact Info) Description 11/29/2024 9:00 AM CDT Appointment [facility] [address] [place] [address] Idris Lozano MD Three [facility]. [address] [place], [place] [phone] 12/08/2024 9:15 AM CDT Office Visit [facility] [facility] [address] [place] [phone] Odalys Woodall FNP 3 [facility] [address] [place], [place] [phone] 01/25/2025 10:40 AM CDT Office Visit [facility] Family & Internal Medicine - [place] [address] [place] [address] [place] [address] [facility]. [address] [place] [address] documented as of this encounter Visit Diagnoses Not on filedocumented in this encounter Care Teams Cyber Security Instructor Relationship Specialty [place] [address] [facility] Sh[facility]. [address] [place] [phone] PCP - General FAMILY PRACTICE 06/26/22 documented as of this encounter
--- OUTSIDE RECORDS SUMMARY | 2024-11-20 15:41 | XMS_ITS | Encounter Summary ---
Author Organization [facility] Address [facility] [place] [address] Care Team Providers Care Senior Accountant Cpa Name Role Phone Kristy Thomas MD Primary Care Provider [phone] Kristy Thomas MD Unavailable [phone] Encounter Details Date Type Department Care Team (Late st Contact Info) Description 11/26/2022 [employer] Message Enc [facility] THREE [facility], [address] [address] Lorie, [facility] Provider Echocardiogram Social History Tobacco Use Types Packs/Day Years [...] Date Recorded Patient Health Questionnaire-2 Score 0 10/24/2022 Education Answer Date Recorded What is the highest level of school you have completed or the highest degree you have received? 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 No / Unsure 10/30/2022 1:33 PM CDT documented as of this encounter Plan of Treatment Upcoming Encounters Date Type Department Care Team (Late st Contact Info) Description 11/29/2024 9:00 AM CDT Appointment [facility] [address] [place] [address] Idris Lozano MD Three [facility]. [address] [place] [address] 12/08/2024 9:15 AM CDT Office [facility] [address] [place] [phone] Odalys Woodall FNP 3 [facility] [address] [place] [address] 01/25/2025 10:40 AM CDT Office Visit [facility] Medical Group Family & Internal Medicine - [place] [address] [place] [address] [place] [address] [facility] [address]aya. [address] [place] [address] documented as of this encounter Visit Diagnoses Not on filedocumented in this encounter Care Teams Senior Accountant Cpa Relationship Specialty [place] [address] [address] [place], [place] [phone] PCP - General FAMILY PRACTICE 06/26/22 [place] [address] [address] [place], [place] [phone] FAMILY PRACTICE 02/11/23 02/11/23 documented as of this encounter
--- OUTSIDE RECORDS SUMMARY | 2024-11-20 15:41 | XMS_ITS | Encounter Summary ---
Author Organization [facility] Address [facility] [place] [address] Care Team Providers Care Referral Management Liaison Name Role Phone Nadeem Powell MD Primary Care Provider U zhanna Kristy Thomas MD Primary Care Provider [phone] Kristy Thomas MD Unavailable [phone] Encounter Details Date Type Department Care Team (Late st Contact Info) Description 08/03/2019 Medication Management [facility] Group Family & Internal Medicine [facility] [address] [place] [address] Nadeem Powell MD Social History Tobacco Use Types Packs/Day Years Used Date Smoking Tobacco: Former Cigarettes 0.5 12 1 963 - 1975 Smokeless Tobacco: Never Alcohol Use Standard Drinks/Week Comments Yes 0 (1 standard drink = 0.6 oz pur e alcohol) social PHQ-2 Answer Date Recorded PHQ-2 Score 0 09/28/2018 Education Answer Date Recorded What is the highest level of school you have completed or the highest degree you have received? High school graduate 07/30/2018 Comments No Sex and Gender Information Value Date Recorded Sex Assigned at Female 06/15/2024 10:12 AM BOOK SOLICITOR Legal Sex Female 11:04 PM CDT Gender Identity Female 09/23/2021 8:49 AM CDT Sexual Orientation Not on file documented as of this encounter Plan of Treatment Upcoming Encounters Date Type Department Care Team (Late st Contact Info) Description 11/29/2024 9:00 AM CDT Appointment [facility] [id number] [place] [address] [place] [address] Idris Lozano MD Three [facility]. [address] [place] [address] 12/08/2024 9:15 AM CDT Office Visit [facility] [address] [place] [address] Odalys Woodall, TAPE EDITOR 3 [facility] [address] [place] [address] 01/25/2025 10:40 AM CDT Office Visit [facility] Medical Group Family & Internal Medicine - [place] [address] [place] [phone] [place] [address] [facility] [address]aver. [address] [place] [address] documented as of this encounter Visit Diagnoses Not on filedocumented in this encounter Additional Health Concerns Infection Onset Date Last Indicated Resolved Time COVID-19 Rule Out 10/24/2022 10/24/2022 10/24/2022 10:11 AM CDT documented as of this encounter Care Teams Referral Management Liaison Relationship Specialty Start Date End Date Nadeem Powell MD PCP - General INTERNAL MEDICINE 02/24/18 06/25/22 [place] [address] [place] [address] PCP - General FAMILY PRACTICE 06/26/22 [place] [address] [place] [address] FAMILY PRACTICE 02/11/23 02/11/23 documented as of this encounter
--- OUTSIDE RECORDS SUMMARY | 2024-11-20 15:41 | XMS_ITS | Encounter Summary ---
Author Organization [facility] Address [facility]6 [place] [address] Care Team Providers Care Modeling Teacher Name Role Phone Kristy Thomas MD Primary Care Provider [phone] Kristy Thomas MD Unavailable Encounter Details Date Type Department Care Team (Late st Contact Info) Description 09/11/2022 [employer] Message Enc [facility] Medical Group Family & Internal Medicine [facility] [address] [place] [address] Lorie, [facility] Provider hip pain/x-rays Social History Tobacco Use Types Packs/Day Years Used Date Smoking Tobacco: Former Cigarettes 0.5 12 3 1974 Smokeless Tobacco: Never Alcohol Use Standard Drinks/Week [...] Sex Assigned at Female 06/15/2024 10:12 AM 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 [address] [place] [address] 12/08/2024 9:15 AM CDT Office [facility] [address] [place] [phone] Odalys Woodall FNP 3 [facility] [address] [place] [address] 01/25/2025 10:40 AM CDT Office Visit [facility] Medical Group Family & Internal Medicine - [place] [address] [place] [address] [place] [address] [facility] [address] [place] [phone] documented as of this encounter Visit Diagnoses Not on filedocumented in this encounter Additional Health Concerns Infection Onset Date Last Indicated Resolved Time COVID-19 Rule Out 10/24/2022 10/24/2022 10/24/2022 10:11 AM CDT documented as of this encounter Care Teams Modeling Teacher Relationship Specialty [place] [address] [facility] [address] [place] [phone] PCP - General FAMILY PRACTICE 06/26/22 [place] [address] [place] [address] FAMILY PRACTICE 02/11/23 02/11/23 documented as of this encounter
--- OUTSIDE RECORDS SUMMARY | 2024-11-20 15:41 | XMS_ITS | Encounter Summary ---
Author Organization [facility] Address [facility] [place] [address] Care Team Providers Care Monogram Technician Name Role Phone Kristy Thomas MD Primary Care Provider [phone] Encounter Details Date Type Department Care Team (Late st Contact Info) Description 11/20/2024 2:06 PM CDT - 11/20/2024 2:10 PM CDT Emergency [facility] Emergency Room [id number] [place] [phone] Discharge Disposition: Left Against Medical Advice Social History Tobacco Use Types Packs/Day Years Used Date Smoking Tobacco: Former Cigarettes 0.5 12 1 3 1974 Passive Smoke Exposure: Past Smokeless Tobacco: [...] Sex Assigned at Female 06/15/2024 10:12 AM 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 180 tablet 3 5 Ascorbic Acid (VITAMIN C OR) Take 8,000 mcg by mouth daily. ASHWAGANDHA OR Take 1 tablet by mouth. atorvastatin (LIPITOR) 20 MG tabletIndications:M ixed hyperlipidemia Take 1 tablet (20 mg total) by mouth nightly at bedtime. Taking Mon and Thu 60 tablet 5 5 Barberry-Oreg Grape-Goldenseal (BERBERINE COMPLEX OR) Take 1 tablet by mouth 2 (two) times a day. Blood Glucose Monitoring Suppl ([employer] REFLECT) w/Device KitIndications:Type 2 diabetes mellitus without complication, without long-term current use of insulin ([facility] HHS/HCC) 1 kit by Does not apply route see administration instructions. 1 kit 4 calcium carbonate 1250 (500 Ca) MG chewable tablet Chew 1 tablet (1,250 mg total) by mouth daily. Cholecalciferol (VITAMIN D3 OR) Take 800 mcg by mouth daily. CINNAMON OR Take 1,000 mg by mouth 2 (two) times a day. Coenzyme Q10 (CO Q10 OR) Take 200 mcg by mouth daily. ferrous sulfate, 65 mg elemental, 325 (65 FE) MG tabletIndications:I diana deficiency anemia, unspecified iron deficiency anemia type TAKE 1 TABLET BY MOUTH EVERY DAY WITH BREAKFAST 90 tablet 5 Glucose Blood (TRUE METRIX BLOOD GLUCOSE TEST) test stripIndications:Ty pe 2 diabetes mellitus without complication, without long-term current use of insulin ([facility] HHS/HCC) USE 1 STRIP BY OTHER ROUTE DAILY. USE INSTRUCTED 100 strip 3 4 irbesartan (AVAPRO) 150 MG tabletIndications:P rimary hypertension Take 0.5 tablets (75 mg total) by mouth daily. 45 tablet 3 5 Lancets (RolithUCH DELICA PLUS AAXOIR15O) MiscIndications:Typ e 2 diabetes mellitus without complication, without long-term current use of insulin ([facility] HHS/HCC) 1 EACH BY DOES NOT APPLY ROUTE DAILY. USE ONCE DAILY NEEDED. 100 each 1 5 Lancets MiscIndications:Typ e 2 diabetes mellitus without complication, without long-term current use of insulin ([facility]) 1 each by Does not apply route daily. Use 1 daily as needed 100 each 3 4 Lancets MiscIndications:Typ e 2 diabetes mellitus without complication, without long-term current use of insulin ([facility]) Use 1 daily as needed. 100 each 1 4 MAGNESIUM OR Take 800 mg by mouth daily. metFORMIN (GLUCOPHAGE) 500 MG tabletIndications:T ype 2 diabetes mellitus without complication, without long-term current use of insulin ([facility]) Take 1 tablet (500 mg total) by mouth 2 (two) times daily. 180 tablet 3 5 metoprolol succinate ER (TOPROL-XL) 25 MG 24 hr tabletIndications:P aroxysmal atrial fibrillation ([facility]) Take 0.5 tablets (12.5 mg total) by mouth daily. 45 tablet 3 5 MILK THISTLE OR Take 375 mg by mouth as needed. MULTIPLE VITAMIN OR Take 1 tablet by mouth 2 (two) times a day. Prasterone, DHEA, (DHEA 50 OR) Take 50 mLs by mouth daily. QUERCETIN OR Take 1 tablet by mouth daily. Red Yeast Rice Extract (RED YEAST RICE OR) Take 1 tablet by mouth daily. RESVERATROL OR Take 1 tablet by mouth daily. SELENIUM OR Take 200 mcg by mouth daily. SODIUM FLUORIDE 5000 PPM 1.1 % Gel see administration instructions. 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 90 tablet 3 5 traZODone (DESYREL) 50 MG tabletIndications:O ther insomnia Take 1 tablet (50 mg total) by mouth nightly at bedtime. 90 tablet 3 5 TURMERIC CURCUMIN OR Take 1 tablet by mouth daily. VITAMIN A OR Take 10,000 Units by mouth daily. VITAMIN E OR Take 400 Units by mouth daily. documented as of this encounter Plan of Treatment Upcoming Encounters Date Type Department Care Team (Late st Contact Info) Description 11/29/2024 9:00 AM CDT Appointment [facility] [address] [place] [address] Idris Lozano MD Three [facility]. [address] [place] [address] 12/08/2024 9:15 AM CDT Office [facility] [address] [place] [phone] Odalys Woodall FNP 3 [facility] [address] [place], [place] [address] 01/25/2025 10:40 AM CDT Office Visit [facility] Medical Group Family & Internal Medicine - [place] [address] [place] [address] [place] [address] [facility] Chhaya. [address] [place] [phone] documented as of this encounter Visit Diagnoses Not on filedocumented in this encounter Care Teams Monogram Technician Relationship Specialty [place] [address] [facility] [address]rory[address] [place] [address] PCP - General FAMILY PRACTICE 06/26/22 documented as of this encounter
--- OUTSIDE RECORDS SUMMARY | 2024-11-20 15:41 | XMS_ITS | Encounter Summary ---
Author Organization [facility] Address [facility] [place] [address] Care Team Providers Care Fish Processor Name Role Phone Kristy Thomas MD Primary Care Provider [phone] Encounter Details Date Type Department Care Team (Late st Contact Info) Description 06/20/2024 Pre-Procedure Call [facility] Pre-Admission Testing [address] [address] [place], [place] [id number] Carloz Hugo MD [facility]. [facility] [address] [place], [place] [id number] Social History Tobacco Use Types Packs/Day Years [...] Date Recorded Patient Health Questionnaire-2 Score 0 10/21/2023 Education Answer Date Recorded What is the highest level of school you have completed or the highest degree you have received? High school graduate 07/30/2018 Comments No Sex and Gender Information Value Date Recorded Sex Assigned at Female 06/15/2024 10:12 AM UNDERLAY STITCHER Legal Sex Female 11:04 PM CDT Gender Identity Female 09/23/2021 8:49 AM CDT Sexual Orientation Not on file documented as of this encounter Last Filed Vital Signs Vital Sign Reading Time Taken Comments Blood Pressure - - Pulse - - Temperature - - Respiratory Rate - - Oxygen Saturation - - Inhaled Oxygen Concentration - - Weight 79.4 kg (175 lb) 06/20/2024 1:58 PM UNDERLAY STITCHER Height 165.1 cm (5' 5) 06/20/2024 1:58 PM UNDERLAY STITCHER Body Mass Index 29.12 06/20/2024 1:58 PM UNDERLAY STITCHER documented in this encounter Progress Notes * Shanell Mcfadden RN - 06/20/2024 1:46 PM CST Can you climb 2 flights of stairs without severe SOB or chest pain? Yes Are you physically able to do the same things today as 6 months ago? Yes Have you had any heart testing? EKG 2023 Avg BP? 130/70's hold irbesartan night before, bring DOS Do you have a propeller inspector? Marta RLAY STITCHER RLAY STITCHER documented in this encounter OR Notes * OR PreOp - Leticia Chao CNP - 06/20/2024 2:14 PM CST Chart reviewed. Per phone interview, patient denies any SOB/CP with 2 FOS or recent changes in activity tolerance in past 6 months. Patient sees propeller inspector Dr. Lozano and previous cardiac testing copied. Patient on irbesartan for h/o HTN. States baseline BP runs 130/70s. Per Anesthesia recommendations,please have patient hold for surgery and to bring medication with them on DOS. EKG 01/25/[address] DEPRESSION Compared to ECG dated 10/10/19, findings are similar Rate 61 Echo 11/22/23 Left ventricle is normal in size and systolic function Estimated EF of 65-70% Right ventricle is normal in size and systolic function Mild aortic stenosis Mild mitral regurgitation Unable to estimate pulmonary pressures. Likely mild LVOT dynamic obstruction. Event monitor (09/2019) - <1% Afib with a daily burden of 0 to 5%. Echo (10/2019) - EF normal, moderate /mild AI. Moderate LVH, diastolic dysfunction. Echo (11/2020) - EF of 55-60%. Moderate with mild AI. Mild TR. Echo (11/2021) - EF 55-60%, mod , mild AI, mild TR Echo (11/2022) - EF normal, mod , mild MR/TR, The peak velocity across the aortic valve measures 3.2m/sec with a peak gradient of 44mmHg and a mean gradient of 22mmHg RLAY STITCHER documented in this encounter Plan of Treatment Upcoming Encounters Date Type Department Care Team (Late st Contact Info) Description 11/29/2024 9:00 AM CDT Appointment [facility] Ultrasound [address] [place] [address] Idris Lozano MD [facility]. [facility] [address] [place], [place] [id number] 12/08/2024 9:15 AM CDT Office Visit [facility] [address] [place] [phone] Odalys Woodall FNP 3 [facility] [address] [place] [address] 01/25/2025 10:40 AM CDT Office Visit [facility] - [place] [address] [place] [address] [place] [address] [place] [phone] documented as of this encounter Visit Diagnoses Not on filedocumented in this encounter Care Teams Fish Processor Relationship Specialty [place] [address] [place], [place] [id number] PCP - General FAMILY PRACTICE 06/26/22 documented as of this encounter
--- NOTE | 2024-11-20 15:57 | ED_ITS ---
HPI - Fall General Chief Complaint: Fall Stated Complaint: fell Time Seen by Provider: 11/20/24 15:27 History of Present Illness HPI Narrative: 79-year-old female with history of AFib on Eliquis presents to emergency department for a ground level mechanical fall that occurred prior to arrival. Patient states she was caring a watermelon when she tripped and fell in her garage. She hit the right side of her head but did not lose consciousness. She presents with a superficial abrasion to the bridge of her nose and bilateral knee pain with swelling to her right knee and a superficial abrasion over the right knee. She states her Tdap is up-to-date. She is also reporting mild neck pain. C-collar is in place. She denies back pain or other injuries acquired. States she has a known nasal bone fracture with a chronic ?bump? to the bridge of her nose, but is not having any pain to her nose. Related Data Home Medications ?Medication ?Instructions ?Recorded ?Confirmed ?Last Taken ?Type apixaban 2.5 mg tablet (Eliquis) 2.5 mg PO BID 11/05/22 11/05/22 Unknown History Allergies Allergy/AdvReac Type Severity Reaction Status Date / Time No Known Allergies Allergy Verified 11/05/22 13:26 Review of Systems Review of Systems: All systems reviewed & are unremarkable except as noted in HPI and below PMFSH Past Medical History Medical History A-fib Insulin resistance Surgical History Surgical History History of tonsillectomy History of hysterectomy History of hip replacement - 2013 Family History Family History Mother Alcoholism Father Lung cancer Social History Social History Smoking status: Former smoker Alcohol intake: current Substance use type: does not use Lack of Transportation: No Lack of Food: Never True Current Housing: I Have Housing Concerned About Future Housing: No Difficulty Paying Gas/Electric Bills: No Currently Unemployed: No Education: High School Diploma/GED Difficulty w/ Childcare or Family Care: No Living arrangements: alone Occupation/Education: retired Exam Narrative: GENERAL: Well-appearing, well-nourished, and in no acute distress. HEAD: Normocephalic, atraumatic. EYES: PERRLA and EOMI. ENT: Nares clear, no rhinorrhea or epistaxis. Mucous membranes moist. Superficial well approximated laceration to the bridge of the nose with no active bleeding, mild deformity to abrasion nose which is reportedly chronic per patient, minimal tenderness to the bridge of the nose with no ecchymosis or edema. No septal hematomas or epistaxis. No tenderness to the orbits or facial bones. Normal dentition with no dental fractures or intraoral lacerations. NECK: Mild midline cervical spinous tenderness without crepitus, step-offs or deformities CHEST: Clear to auscultation. No respiratory distress. No tenderness to chest wall HEART: Regular rate and rhythm. No murmur heard. Normal peripheral pulses. ABDOMEN: Soft, nontender, nondistended, normal active bowel sounds. EXTREMITIES: Tenderness to the medial joint line of the right knee, suprapatellar effusion with superficial abrasion overlying the patella. Left knee with tenderness to the proximal tibia. No obvious deformities bilaterally. Patient has full active and passive range of motion of bilateral knees without difficulty. No laxity with varus or valgus stress, negative anterior posterior drawers. Bilateral DP pulses are 2+ with sensation intact. No tenderness remainder of upper or lower extremities. SKIN: Warm, dry, no rash. NEURO: No focal deficits. Alert and oriented x3 Course Vital Signs Vital signs: Vital Signs Temperature 97.8 F 11/20/24 14:40 Pulse Rate 55 L 11/20/24 14:40 Respiratory Rate 16 11/20/24 14:40 Blood Pressure 138/78 11/20/24 14:40 Pulse Oximetry 100 11/20/24 14:40 Oxygen Delivery Room Air 11/20/24 14:40 Temperature 97.8 F 11/20/24 14:40 Pulse Rate 55 L 11/20/24 14:40 Respiratory Rate 16 11/20/24 14:40 Blood Pressure 138/78 11/20/24 14:40 Pulse Oximetry 100 11/20/24 14:40 Oxygen Delivery Room Air 11/20/24 14:40 MDM - Fall MDM Narrative Medical decision making narrative: 79-year-old female with history of AFib on Eliquis presents to the emergency department for a ground level mechanical fall that occurred prior to arrival. Patient did hit her head but did not lose consciousness. Exam is notable for the above. Vital signs are stable. CT of the brain shows no acute intracranial process. CT cervical spine shows no acute fracture traumatic malalignment in the cervical spine. Bilateral knee x-ray showed no acute osseous findings in the knees. Patient updated on results. I did offer to obtain CT facial bones given nasal bridge injury however patient declines and states that her nose has a small deformity from prior fracture. There is a small well-approximated laceration over the bridge of the nose, I will start the patient on antibiotics to cover for potential underlying open fracture although this seems less likely given she has no significant tenderness on exam. I suspect she has a right knee traumatic bursitis. She was placed in a Saqib wrap and advised to RICE take Tylenol as needed for pain. Discussed strict ED return precautions. She is agreeable with the plan verbalized understanding. Discharged in stable condition. Discharge Plan Discharge Clinical Impression: Closed head injury, Acute bilateral knee pain, Abrasion Patient Disposition: Home Condition: Stable Instructions: Antibiotic Form, Knee Bursitis (ED), Head Injury (ED) Additional Instructions: Your evaluated in the emergency department after a fall. Your imaging here is reassuring. Please wear an Saqib wrap on her right knee as discussed. Rest, ice and elevate your knees. Take Tylenol as needed for pain as directed [id number] on the bottle. Take antibiotics as directed. Follow-up closely with her primary care provider. Return to the emergency department if you develop vision changes, focal numbness or weakness, seizure-like activity, fevers, redness or drainage to your wounds or other concerning symptoms. Patient Language: Persian Prescriptions: New cephalexin 500 mg capsule 500 mg PO Q8H 5 Days Qty: 15 0RF No Action Eliquis 2.5 mg tablet 2.5 mg PO BID Follow-up/Referrals: William,MD Kristy [Primary Care Provider] -
[2024-11-20] MEDS: ACETAMINOPHEN 500 MG TABLET 1000 MG PO (16:23)
== END 2024-11-20 17:38 | disposition home or self-care (01) ==
PROVIDERS: Emergency Provider Physician Assistant; PCP Family Medicine
DX: S09.90XA Unspecified injury of head, initial encounter (principal); M25.562 Pain in left knee; M25.561 Pain in right knee; S00.31XA Abrasion of nose, initial encounter; S80.211A Abrasion, right knee, initial encounter; W01.0XXA Fall on same level from slipping, tripping and stumbling without subsequent striking against object, initial encounter
CPT/HCPCS: 70450; 72125; 73564; 99284; A9270